=== PATIENT | female | born 1980 | race Caucasian/White ===

== ENCOUNTER 2017-02-15 20:17 | Emergency (ER) | payer MEDICAID, OTHER ==
[2017-02-15 20:17] VITALS: BMI 32.1
[2017-02-15 20:59] VITALS: O2SAT 98
[2017-02-15] MEDS ORDERED: Sodium Chloride 0.9% 2,000 ML IV STA (21:28)
[2017-02-15 21:46] LABS: BASO % 0.3 % (0.0-2.0); HEMOGLOBIN 11.4 g/dL (12.0-16.0); LYMPH # 0.6 K/uL (1.0-4.3); LYMPH % 9.1 % (20.0-40.0); MEAN CORPUSCULAR HEMOGLOBIN 28.6 pg (27.0-31.0); MEAN CORPUSCULAR HGB CONC 33.6 g/dL (33.0-37.0); MEAN PLATELET VOLUME 7.6 fl (7.2-11.7); MONO # 0.2 K/uL (0.0-0.8); MONO % 2.6 % (0.0-10.0); NEUT # 5.6 K/uL (1.8-7.0); PLATELET COUNT 183 K/uL (130-400); RBC 3.99 Mil/uL (3.80-5.20); RED CELL DISTRIBUTION WIDTH 17.3 % (11.5-14.5); WHITE BLOOD COUNT 6.4 K/uL (4.8-10.8)
[2017-02-15 21:54] LABS: BLOOD UREA NITROGEN 13 mg/dl (7-17); CALCIUM 8.5 mg/dL (8.4-10.2); GFR AFRICAN-AMERICAN > 60; GFR NON-AFRICAN AMERICAN > 60
--- NOTE | 2017-02-15 22:49 | ED PDOC ---
HPI: Headache Time Seen by Provider: 02/15/17 21:03 Chief Complaint (Nursing): Headache Chief Complaint (Provider): Fever, headache, diarrhea History Per: Patient History/Exam Limitations: no limitations Onset/Duration Of Symptoms: Days (2), Gradual (headache) Additional Complaint(s): Patient is a 36 year old female presenting to the emergency department for fever , a gradual and non-thunderclap headache, and watery and non-bloody diarrhea since yesterday and also complains of chronic right knee pain. States that she went to [facility] yesterday where she received a head CT scan and was given Tramadol. She also saw her PCP today for the same symptoms and was told that she had dehydration. PCP: Dr. Diogenes Gale Past Medical History Reviewed: Historical Data, Nursing Documentation, Vital Signs Vital Signs: Last Vital Signs Temp 101.2 F H 02/15/17 20:54 Pulse 123 H 02/15/17 20:54 Resp 16 02/15/17 20:54 BP 97/66 L 02/15/17 20:54 Pulse Ox 98 02/15/17 20:54 - Medical History PMH: Asthma, Gastritis, Gall Bladder Disease (Removed 2008) Denies: Chronic Kidney Disease - Surgical History Surgical History: Cholecystectomy, Endoscopy - Family History Family History: States: Unknown Family Hx - Social History Current smoker - smoking cessation education provided: No Ex-Smoker (has not smoked in the last 12 months): No Alcohol: None Drugs: Denies - Immunization History Hx Tetanus Toxoid Vaccination: No Hx Influenza Vaccination: No Hx Pneumococcal Vaccination: No - Home Medications Home Medications: Ambulatory Orders Medication Instructions Recorded Ibuprofen [Motrin Tab] 600 mg PO Q6H PRN #0 tab 09/17/14 Pantoprazole 40 mg PO Q4 09/20/14 Ibuprofen [Motrin Tab] 800 mg PO TID PRN #20 tab 09/21/14 Magnesium Citrate [Good Neighbor 300 ml PO ONCE PRN #1 bottle 09/22/14 Pharmacy Magnesium Citrate] Lactobacillus Acidophilus 1 each PO BID 20 Days 02/15/17 [Acidophilus Lactobacilli] Loperamide [Imodium] 2 mg PO TID 2 Days 02/15/17 - Allergies Allergies/Adverse Reactions: Allergies Allergy/AdvReac Type Severity Reaction Status Date / Time codeine Allergy Mild DIZZINESS Verified 02/15/17 21:27 morphine Allergy Mild ITCHING Verified 02/15/17 21:26 tramadol Allergy Mild DIZZINESS Verified 02/15/17 21:26 seasonal Allergy ITCHING Uncoded 09/20/14 21:49 Review of Systems ROS Statement: Except As Marked, All Systems Reviewed And Found Negative Constitutional: Positive for: Fever Gastrointestinal: Positive for: Diarrhea (watery and non-bloody) Musculoskeletal: Positive for: Other (chronic right knee pain) Neurological: Positive for: Headache (gradual, non-thunderclap) Physical Exam - Reviewed Nursing Documentation Reviewed: Yes Vital Signs Reviewed: Yes - Physical Exam Appears: Positive for: Well, Non-toxic, No Acute Distress Head Exam: Positive for: ATRAUMATIC Skin: Positive for: Normal Color, Warm (Warm to touch), Dry Eye Exam: Positive for: EOMI, Normal appearance, PERRL Neck: Positive for: Normal, Supple Cardiovascular/Chest: Positive for: Regular Rate, Rhythm. Negative for: Murmur Respiratory: Positive for: Normal Breath Sounds. 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 Negative for: Motor/Sensory Deficits - Laboratory Results Result Diagrams: 02/15/17 21:35 02/15/17 21:35 - ECG O2 Sat by Pulse Oximetry: 98 (RA) Pulse Ox Interpretation: Normal Medical Decision Making Medical Decision Making: Time: 21:28 Initial impression: Enteritis and dehydration Initial plan: Labs Urine dipstick Urine Tylenol 650 mg PO Toradol 30 mg IV Reglan 10 mg IV Normal Saline, 2 L at 1 L/hr IV Insertion Reevaluation 23:00 Upon provider reevaluation patient is feeling better, is medically stable, and requires no further treatment in the ED at this time. Patient will be discharged with Rx for Loperamide. Counseling was provided and all questions were answered regarding diagnosis and need for follow up with Dr. Diogenes Porras. There is agreement to discharge plan. Return if symptoms persist or worsen. Clinical Impression: Diarrhea and dehydration MD has reviewed and agrees with documentation that has been reported. Scribe Attestation: Documented by Cassy Ziegler, acting as a scribe for Karlo Ying MD. Provider Scribe Attestation: All medical record entries made by the Scribe were at my direction and personally dictated by me. I have reviewed the chart and agree that the record accurately reflects my personal performance of the history, physical exam, medical decision making, and the department course for this patient. I have also personally directed, reviewed, and agree with the discharge instructions and disposition. Disposition - Clinical Impression Clinical Impression: Diarrhea, Dehydration - Patient ED Disposition Is Patient to be Admitted: No Counseled Patient/Family Regarding: Diagnosis, Need For Followup, Rx Given - Disposition Referrals: Diogenes Porras MD [Medical Doctor] - Disposition: Routine/Home Disposition Time: 23:00 Condition: IMPROVED Prescriptions: Lactobacillus Acidophilus [Acidophilus Lactobacilli] 1 each PO BID 20 Days Loperamide [Imodium] 2 mg PO TID 2 Days Instructions: Loperamide (By mouth), Dehydration (ED), Acute Diarrhea (ED) Forms: [facility] (South African) Print Language: GERMAN
[2017-02-15 23:00] LABS: ANISOCYTOSIS MODERATE; BANDS 5 % (0-2); BASOPHIL 1 % (0-2); LARGE PLATELETS PRESENT; LYMPHOCYTE 9 % (20-50); MONOCYTE 3 % (0-10); NEUTROPHIL 82 % (42-75); OVALOCYTES SLIGHT; PLATELET ESTIMATE NORMAL (NORMAL); POIKILOCYTOSIS SLIGHT; TOTAL CELLS COUNTED 100
[2017-02-15 23:30] VITALS: BP 108/55; PULSE 101; RESP 18; TEMP 98.8
== END 2017-02-15 23:41 | disposition home or self-care (01) ==
LOC: H.ER 20:17
DX: E86.0 Dehydration (principal); K52.9 Noninfective gastroenteritis and colitis, unspecified